=== PATIENT | female | born 1945 | race Caucasian/White ===

== ENCOUNTER 2024-08-06 11:00 | Inpatient (IN) | payer OTHER, SELFPAY ==
[2024-08-04 13:00] VITALS: BP 134/63
[2024-08-04 13:02] VITALS: BP 134/63
[2024-08-04 13:13] LABS: Glucose - Point of Care 126 mg/dl (70-99)
[2024-08-04 13:21] LABS: % Basophils 0.2 % (0-2); % Eosinophils 0.1 % (0-6); % Immature Granulocytes 0.6 % (0-0.5); % Lymphocytes 5.3 % (20.5-51.1); % Monocytes 7.5 % (1.7-9.3); % Neutrophils 86.3 % (42.2-75.2); Absolute Immature Granulocytes 0.1 10^3/uL (0-0.05); Absolute Lymphocytes 0.8 10^3/uL (1.2-3.4); Absolute Monocytes 1.1 10^3/uL (0.1-0.6); Absolute Neutrophils 12.5 10^3/uL (1.4-6.5); Hematocrit 38.4 % (37.0-47.0); Hemoglobin 13.2 g/dL (12.0-16.0); Mean Corp Hgb Conc. 34.4 g/dL (33.0-37.0); Mean Corpuscular Hgb 31.5 pg (27.0-31.0); Mean Corpuscular Volume 91.6 fL (81.0-99.0); Mean Platelet Volume 10.4 fL (7.4-10.4); Nucleated Red Blood Cells % 0 %; Platelet Count 258 10^3/uL (130-400); Red Blood Cell Count 4.19 10^6/uL (4.20-5.40); Red Cell Dist. Width 12.3 % (11.5-14.5); White Blood Cell Count 14.5 10^3/uL (4.8-10.8)
[2024-08-04 13:36] LABS: Blood Urea Nitrogen 18 mg/dl (7-17); Calcium 9.6 mg/dl (8.4-10.2); Carbon Dioxide 30 mmol/L (22-30); Chloride 99 mmol/L (98-107); Estimated Creatinine Clearance 47 ml/min; Glucose 121 mg/dl (70-99); Sodium 138 mmol/L (135-145); eGFR 57.31
[2024-08-04 14:00] VITALS: BP 128/82
--- NOTE | 2024-08-04 14:00 | ED.GENMED ---
History of Present Illness
<Victoria Cortez PA-C - Last Filed: 08/04/24 16:01>
General
Chief Complaint: Blood Sugar Problem
Source: patient and family
Time Seen by Provider: 08/04/24 13:41
History of Present Illness
History of Present Illness:
79yoF with a history of hypertension, hyperlipidemia, and insulin dependent type 2 diabetes presenting via EMS for evaluation after an episode of unresponsiveness. Son went to visit patient today and she was found to be unresponsive on the floor. He
immediately called EMS. Glucose was undetectably low on EMS arrival. IV access was unable to be obtained and an IO was placed in the R lower leg. She received D10 prehospital and she is now awake and alert. Patient has been sick for about 4-5 days
with URI symptoms and a cough. She was seen by her PCP yesterday and placed on amoxicillin. She has poor appetite due to her symptoms and has not eaten since yesterday. This is the 2nd time EMS has been called to her house this week for
hypoglycemia. She currently takes Basaglar 32 units BID, metformin, glipizide, and Farxiga. She did not take any of her medications today.
Phy Exam
<Victoria Cortez PA-C - Last Filed: 08/04/24 16:01>
General Physical Exam
General Presentation: well appearing and no apparent distress
General age: appears stated age
General Skin: warm and dry
General Habitus: normal
General Mental: alert
ENT Exam
ENT Exam: normocephalic
Cardiovascular Exam
Cardiovascular Exam: regular rate/rhythm
Pulmonary Exam
Pulmonary Exam: lungs clear, no respiratory distress, no rales, no crackles and no rhonchi
[place] Coma Scale
Eye Opening: Spontaneous
Verbal Response: Oriented
Motor Response: Obeys Commands
GCS Total Score: 15
Skin Exam
Skin Exam: normal color and warm/dry
Psychiatric Exam
Psychiatric Exam: normal mood/affect
Course
<Victoria Cortez PA-C - Last Filed: 08/04/24 16:01>
Orders/Labs/Results
Orders:
Orders
08/04/24 13:14
Basic Metabolic Panel Urgent
Complete Blood Count/With Diff Urgent
08/04/24 14:00
CR Chest - 2 Views Urgent
Comment:
Reason For Exam: Cough
08/04/24 14:19
Influenza A+B Rapid Molecular Urgent
[facility] Source: Nasal Swab
Specimen Description:
08/04/24 14:20
COVID-19 Antigen Urgent
Source: Nasal Swab
08/04/24 14:36
LFT [[id number]] Urgent
Potassium Urgent
08/04/24 Dinner
1800 calorie (15 carb) Diabetic
08/04/24 15:51
Add On- LAB Urgent
Tests Added?: HgA1C
08/04/24 15:52
Accucheck [Bedside Glucose Monitoring] As Directed
Frequency: Other frequency
Other frequency: NOW
08/04/24 15:54
Bedside Glucose- Treatment ONCE
Abnormal Lab Results
08/04/24 08/04/24 08/04/24
13:11 13:14 14:36
WBC 14.5 H 10^3/uL
(4.8-10.8)
RBC 4.19 L 10^6/uL
(4.20-5.40)
MCH 31.5 H pg
(27.0-31.0)
Abs Immat Gran (auto) 0.1 H 10^3/uL
(0-0.05)
Absolute Neuts (auto) 12.5 H 10^3/uL
(1.4-6.5)
Absolute Lymphs (auto) 0.8 L 10^3/uL
(1.2-3.4)
Absolute Monos (auto) 1.1 H 10^3/uL
(0.1-0.6)
Immature Gran % 0.6 H %
(0-0.5)
Neutrophils % 86.3 H %
(42.2-75.2)
Lymphocytes % 5.3 L %
(20.5-51.1)
BUN 18 H mg/dl
(7-17)
Glucose 121 H mg/dl
(70-99)
Total Bilirubin 1.7 H mg/dl
(0.2-1.3)
AST 201 H U/L
(14-36)
ALT 53 H U/L
(0-35)
POC Glucose 126 H mg/dl
(70-99)
08/04/24 13:14
08/04/24 14:36
Vital Signs
Initial and Last Documented VS:
Initial Vital Signs
Temp Pulse Resp Pulse Ox
98.4 F 77 20 93
08/04/24 12:59 08/04/24 12:59 08/04/24 12:59 08/04/24 12:59
Last Documented Vital Signs
Temp Pulse Resp BP Pulse Ox
98.4 F 81 23 125/67 95
08/04/24 13:02 08/04/24 15:45 08/04/24 15:45 08/04/24 15:12 08/04/24 15:45
<Bryn Philip, DO - Last Filed: 08/04/24 14:55>
Orders/Labs/Results
Orders:
Orders
08/04/24 13:14
Basic Metabolic Panel Urgent
Complete Blood Count/With Diff Urgent
08/04/24 14:00
CR Chest - 2 Views Urgent
Comment:
Reason For Exam: Cough
08/04/24 14:19
Influenza A+B Rapid Molecular Urgent
[facility] Source: Nasal Swab
Specimen Description:
08/04/24 14:20
COVID-19 Antigen Urgent
Source: Nasal Swab
08/04/24 14:36
LFT [[id number]] Urgent
Potassium Urgent
08/04/24 Dinner
1800 calorie (15 carb) Diabetic
08/04/24 15:51
Add On- LAB Urgent
Tests Added?: HgA1C
08/04/24 15:52
Accucheck [Bedside Glucose Monitoring] As Directed
Frequency: Other frequency
Other frequency: NOW
08/04/24 15:54
Bedside Glucose- Treatment ONCE
Abnormal Lab Results
08/04/24 08/04/24 08/04/24
13:11 13:14 14:36
WBC 14.5 H 10^3/uL
(4.8-10.8)
RBC 4.19 L 10^6/uL
(4.20-5.40)
MCH 31.5 H pg
(27.0-31.0)
Abs Immat Gran (auto) 0.1 H 10^3/uL
(0-0.05)
Absolute Neuts (auto) 12.5 H 10^3/uL
(1.4-6.5)
Absolute Lymphs (auto) 0.8 L 10^3/uL
(1.2-3.4)
Absolute Monos (auto) 1.1 H 10^3/uL
(0.1-0.6)
Immature Gran % 0.6 H %
(0-0.5)
Neutrophils % 86.3 H %
(42.2-75.2)
Lymphocytes % 5.3 L %
(20.5-51.1)
BUN 18 H mg/dl
(7-17)
Glucose 121 H mg/dl
(70-99)
Total Bilirubin 1.7 H mg/dl
(0.2-1.3)
AST 201 H U/L
(14-36)
ALT 53 H U/L
(0-35)
POC Glucose 126 H mg/dl
(70-99)
08/04/24 13:14
08/04/24 14:36
Vital Signs
Initial and Last Documented VS:
Initial Vital Signs
Temp Pulse Resp Pulse Ox
98.4 F 77 20 93
08/04/24 12:59 08/04/24 12:59 08/04/24 12:59 08/04/24 12:59
Last Documented Vital Signs
Temp Pulse Resp BP Pulse Ox
98.4 F 81 23 125/67 95
08/04/24 13:02 08/04/24 15:45 08/04/24 15:45 08/04/24 15:12 08/04/24 15:45
<Victoria Cortez PA-C - Last Filed: 08/04/24 16:01>
MDM/Problems Addressed
Differential Diagnosis Includes:
79yoF here after an episode of unresponsiveness. Son found her on the ground today. Glucose was undetectable on EMS arrival. She received D10 prehospital and she is awake and alert on arrival. She also c/o URI symptoms x 4-5 days with poor PO
intake. She did not take any of her diabetic medications today. Differential diagnosis includes but is not limited to: Medication side effect, hypoglycemia due to poor p.o. intake, dehydration, pneumonia, viral illness
Initial ED plan: Check CBC, CMP, COVID/flu swab, and chest x-ray. Will have patient eat to prevent further episodes of hypoglycemia.
<Victoria Cortez PA-C - Last Filed: 08/04/24 16:01>
*Critical Care Note
Total Time (30-74mins, 75-104mins- exclusive of procedures): Not Applicable
<Victoria Cortez PA-C - Last Filed: 08/04/24 16:01>
Update Note
Update Note:
Labs reveal a leukocytosis with a white count of 14.5 which is nonspecific. Glucose 121 on lab work. Mild transaminitis also noted. COVID/flu negative. Chest x-ray is pending. Will admit for observation given that this is patient's second
episode of hypoglycemia this week. IO was removed by Dr. Philip at bedside.
ED Attending Note
<Victoria Cortez PA-C - Last Filed: 08/04/24 16:01>
-
Portions of this chart may have been created with voice recognition software.� Occasional wrong word or��sound alike� substitutions may have occurred due to the inherent limitations of voice recognition software.
<Bryn Philip DO - Last Filed: 08/04/24 14:55>
ED Attending Note
Patient seen and examined by attending physician: Yes
ED Attending Note:
I have reviewed and agree with history and treatment plan by Victoria Cortez PA-C. My exam revealed 79-year-old female with right tibial IO. Patient tolerated removal well. Plan for likely admission due to patient's hypoglycemic episode in the
setting of not taking her medications today.
Discharge Plan
Departure
Patient Disposition: Admit
Date of Disposition: 08/04/24
Time of Disposition: 15:20
Presentation/result/management discussed w/ accepting MD/DO: Hospitalist
Discharge Problem:
Hypoglycemia
Prescriptions:
No Action
amoxicillin 500 mg Capsule
500 mg PO TID
Patient Comments:
08/04/24: filled 08/03/24 for 30 capsules over 10 days
atorvastatin 40 mg Tablet
40 mg PO DAILY
glipizide 10 mg Tablet Extended Release 24hr
10 mg PO DAILY
cyanocobalamin (vitamin B-12) 1,000 mcg Tablet
1,000 mcg PO DAILY
levothyroxine 100 mcg Tablet
100 mcg PO DAILY
lisinopril 10 mg Tablet
10 mg PO DAILY
aspirin 81 mg Tablet,Chewable
81 mg PO HS
hydrochlorothiazide 25 mg Tablet
25 mg PO DAILY
escitalopram oxalate 20 mg Tablet
20 mg PO DAILY
metformin 750 mg Tablet Extended Release 24 Hr
750 mg PO BID
cholecalciferol (vitamin D3) [Vitamin D3] 25 mcg (1,000 unit) Tablet
25 mcg PO DAILY
insulin glargine [Basaglar KwikPen U-100 Insulin] 100 unit/mL (3 mL) Insulin Pen
32 unit SC BID
omega 4-bup-nbo-fish oil [Fish Oil] 1,000 (120-180) mg Capsule
1 cap PO BID
Referrals:
Tomeka Preston DO [Family Provider] -
Interventions
Interventions:
*Risk Screen - Suicide Last Done: 08/04/24 13:03
*General Assessment Last Done: 08/04/24 13:03
*Neglect/Abuse Screening Last Done: 08/04/24 13:03
*ED COVID-19 Vaccine History Last Done: 08/04/24 13:03
ED- Neurological Assessment Last Done: 08/04/24 13:08
Discharge Date and Time
Print Language: SAO TOMEAN
[2024-08-04 14:50] LABS: COVID-19 Antigen Negative (Negative)
[2024-08-04 15:12] VITALS: BP 125/67
[2024-08-04 15:13] LABS: ALT (SGPT) 53 U/L (0-35); AST (SGOT) 201 U/L (14-36); Alkaline Phosphatase 47 U/L (38-126); Direct Bilirubin 0.3 mg/dl (0.0-0.4); Potassium 4.5 mmol/L (3.5-5.1); Total Bilirubin 1.7 mg/dl (0.2-1.3); Total Protein 6.7 g/dl (6.3-8.2)
[2024-08-04 16:03] LABS: Glucose - Point of Care 141 mg/dl (70-99)
--- NOTE | 2024-08-04 16:11 | HPS.HSE ---
Addendum entered and electronically signed by Richmond Byrd MD 08/05/24 15:07:
Correction, total time spent to see the patient on the floor, examine the patient, review data and lab results, discuss treatment plan with patient, nursing staff around 55 minutes.
Addendum entered and electronically signed by Richmond Byrd MD 08/04/24 16:26:
Correction, patient is not on Farxiga.
Original Note:
Family Physician
-
Family Physician: Tomeka Preston
Chief Complaint
-
Unresponsiveness
History of Present Illness
79-year-old female with a past medical history of type 2 diabetes, hypertension, hyperlipidemia, and obesity was found unresponsive by her son. Patient has been having cold symptoms for the past 2 weeks, and eating 20% of her normal. She has been
taking the same amount of her diabetes regimen, that includes glargine 32 units twice daily, metformin 750 mg twice daily, glipizide 10 mg daily, and Farxiga. She was found unresponsive by her son today, who called EMS. Her glucose was
undetectably low, and she received D10 via [facility] prehospital. She was placed on amoxicillin by her PCP yesterday. Currently, she reports cough, productive of green sputum. Associated symptoms include rhinorrhea, nasal congestion, poor appetite, poor
oral intake. No fever, no chest pain, no shortness of breath. No nausea, no vomiting.
Medical History
Past Medical History
Past Medical History: Reports HTN, Hypercholesterolemia, Hypothyroidism, IDDM and Other (Anxiety/depression)
Past Surgical History: Reports Other (Bilateral carpal tunnel release, left knee replacement, right toe surgery)
Social History
Tobacco: Former Smoker
Alcohol: None
Drug: None
Family History
Family History: Not pertinent
Allergies / Home Medications
Allergies reflects when Allergies were last updated in [employer].
Home Medications with original date entered in [employer]
Allergy/Medication List:
Allergies
Allergy/AdvReac Type Severity Reaction Status Date / Time
No Known Allergies Allergy Verified 08/04/24 13:02
Home Medications Table - record
�Medication �Instructions �Recorded �Confirmed
amoxicillin 500 mg capsule 500 mg PO TID 08/04/24 08/04/24
aspirin 81 mg chewable tablet 81 mg PO HS 08/04/24 08/04/24
atorvastatin 40 mg tablet 40 mg PO DAILY 08/04/24 08/04/24
cholecalciferol (vitamin D3) 25 25 mcg PO DAILY 08/04/24 08/04/24
mcg (1,000 unit) tablet (Vitamin
D3)
cyanocobalamin (vitamin B-12) 1,000 mcg PO DAILY 08/04/24 08/04/24
1,000 mcg tablet
escitalopram oxalate 20 mg tablet 20 mg PO DAILY 08/04/24 08/04/24
glipizide 10 mg tablet, extended 10 mg PO DAILY 08/04/24 08/04/24
release 24 hr
hydrochlorothiazide 25 mg tablet 25 mg PO DAILY 08/04/24 08/04/24
insulin glargine 100 unit/mL (3 32 unit SC BID 08/04/24 08/04/24
mL) subcutaneous pen (Basaglar
KwikPen U-100 Insulin)
levothyroxine 100 mcg tablet 100 mcg PO DAILY 08/04/24 08/04/24
lisinopril 10 mg tablet 10 mg PO DAILY 08/04/24 08/04/24
metformin 750 mg tablet,extended 750 mg PO BID 08/04/24 08/04/24
release 24 hr
omega 1-tik-twn-fish oil 1,000 mg 1 cap PO BID 08/04/24 08/04/24
(120 mg-180 mg) capsule (Fish Oil)
Review of Systems
-
A 12 point ROS was completed and negative except as noted: Yes
Physical Exam
Vital Signs
Vital Signs
Temp Pulse Resp BP Pulse Ox
98.4 F 81 23 125/67 95
08/04/24 13:02 08/04/24 15:45 08/04/24 15:45 08/04/24 15:12 08/04/24 15:45
Physical Exam
General: No Apparent Distress
HEENT: NormoCephalic, Anicteric and Moist mucous membranes
Respiratory: Clear
Cardiac: S1/S2 and Regular Rhythm
GI: Soft, Non Tender, Non Distended and Normal Bowel Sounds
Musculoskeletal: No Clubbing, No Cyanosis and No Edema
Skin: Warm and Dry
Neuro: Awake, Alert and Oriented
Psych: Calm
Laboratory Results
-
08/04/24 13:14
08/04/24 14:36
Laboratory Results
Total Bilirubin 1.7 mg/dl (0.2-1.3) H 08/04/24 14:36
AST 201 U/L (14-36) H 08/04/24 14:36
ALT 53 U/L (0-35) H 08/04/24 14:36
Alkaline Phosphatase 47 U/L (38-126) 08/04/24 14:36
Impression/Plan
-
HPI: 79-year-old female with a past medical history of type 2 diabetes, hypertension, hyperlipidemia, and obesity was found unresponsive by her son. Patient has been having cold symptoms for the past 2 weeks, and eating 20% of her normal. She has
been taking the same amount of her diabetes regimen, that includes glargine 32 units twice daily, metformin 750 mg twice daily, glipizide 10 mg daily, and Farxiga. She was found unresponsive by her son today, who called EMS. Her glucose was
undetectably low, and she received D10 via [facility] prehospital. She was placed on amoxicillin by her PCP yesterday. Currently, she reports cough, productive of green sputum. Associated symptoms include rhinorrhea, nasal congestion, poor appetite, poor
oral intake. No fever, no chest pain, no shortness of breath. No nausea, no vomiting.
#Unresponsiveness
#Severe hypoglycemia
Patient became responsive with receiving IO glucose
Check EKG, give gentle IV fluids, carefully monitor blood sugars
#Type 2 diabetes with severe hypoglycemia
Patient is on glargine 32 units twice daily, metformin 750 mg twice daily, glipizide 10 mg daily, and Farxiga
Will give glargine 20 units at bedtime, metformin, farxiga
Diabetic diet, sliding scale insulin
Hold glipizide
#Probable acute upper respiratory tract infection
Flu/COVID/chest x-ray all negative
Complete amoxicillin course, continue supportive care
#Mild transaminitis
Likely from infection, monitor
#Benign essential hypertension
Hold lisinopril for now, monitor
#Hypothyroidism
Continue levothyroxine
#Anxiety/depression
Continue SSRI
#T12/L1 compression fractures, likely chronic
DVT prophylaxis�subcu Lovenox
Full code
Total time spent to see the patient on the floor, examine the patient, review data and lab results, discuss treatment plan with patient, nursing staff around 35 minutes.
[2024-08-04 17:32] LABS: Glucose - Point of Care 75 mg/dl (70-99)
--- NOTE | 2024-08-04 17:36 | CM ---
Addendum entered by Mary Lowery 08/04/24 17:42:
Patient and son were asking about information about adding more grab bars into patient's home. Patient was transferred upstairs before CM was able to give her the information.
Original Note:
CM reviewed chart. Introduced self and role. Son was also at bedside. Patient signed the [employer] form for Medicare and commercial insurance. She lives alone in a multi-level home. There are 2 steps to enter into her home. She is usually independent and
drives. She owns a walker and cane. She is retired from [employer] She denied any +SDOHs. She has an active pharmacy and PCP.
ANTICIPATED DISCHARGE PLAN: Home with possible HHC ([facility]?); due to low blood sugar and living alone, when medically cleared.
[2024-08-04 18:07] VITALS: BMI 31.0
[2024-08-04 18:08] VITALS: BP 192/95
[2024-08-04] MEDS: NOVOLOG FLEXPEN-MODERATE RESISTANCE SC (18:29)
--- NOTE | 2024-08-04 18:40 | PTCARENOTE ---
Received pt from ER via stretcher, accompanied by ER staff. Pt AAO x3; pleasant and cooperative. ORTEGA well, ambulatory to bed with assist x1; unsteady w/OOB activity; fall prec initiated. Pt denies weakness/dizziness. VSS. On room air- pulse ox
94%, pt denies SOB; has occ dry [employer] cough. Abd obese, soft, to start 1800 jayson diet. pt DTV; will void in BR; will call for assistance. Temp 100.6 PO; pt with abrasions to knees. Oriented to 4East, currently resting comfortably. Will continue to
monitor.
[2024-08-04] MEDS: NSS 1000 IV (19:11)
[2024-08-04] MEDS: LOVENOX 40 MG SC (19:12)
[2024-08-04 20:58] LABS: Glucose - Point of Care 129 mg/dl (70-99)
[2024-08-04] MEDS: GLUCOPHAGE XR EXTENDED RELEASE 750 MG PO (21:00)
[2024-08-04] MEDS: LOW STRENGTH ASPIRIN 81 MG PO (21:01)
[2024-08-04] MEDS: LANTUS 0.2 UNITS SC (21:01)
[2024-08-04] MEDS: MUCINEX 600 MG PO (21:01)
[2024-08-04] MEDS: AMOXIL 500 MG PO (21:01)
[2024-08-04 23:33] LABS: Glucose - Point of Care 102 mg/dl (70-99)
[2024-08-04 23:49] VITALS: BP 136/62
[2024-08-05 01:12] LABS: Glucose - Point of Care 114 mg/dl (70-99)
[2024-08-05 03:21] LABS: Glucose - Point of Care 90 mg/dl (70-99)
[2024-08-05] MEDS: SYNTHROID 100 MCG PO (05:30)
[2024-08-05 07:46] LABS: Hematocrit 35.8 % (37.0-47.0); Hemoglobin 12.3 g/dL (12.0-16.0); Mean Corp Hgb Conc. 34.4 g/dL (33.0-37.0); Mean Corpuscular Hgb 32.6 pg (27.0-31.0); Mean Platelet Volume 11.1 fL (7.4-10.4); Platelet Count 213 10^3/uL (130-400); Red Blood Cell Count 3.77 10^6/uL (4.20-5.40); Red Cell Dist. Width 12.3 % (11.5-14.5); White Blood Cell Count 9.6 10^3/uL (4.8-10.8)
[2024-08-05 07:55] VITALS: BP 141/90
[2024-08-05 07:59] LABS: Glucose - Point of Care 90 mg/dl (70-99)
[2024-08-05 08:00] LABS: ALT (SGPT) 44 U/L (0-35); AST (SGOT) 114 U/L (14-36); Albumin 3.3 g/dl (3.5-5.0); Alkaline Phosphatase 52 U/L (38-126); Blood Urea Nitrogen 17 mg/dl (7-17); Calcium 8.9 mg/dl (8.4-10.2); Carbon Dioxide 31 mmol/L (22-30); Chloride 101 mmol/L (98-107); Direct Bilirubin 0.1 mg/dl (0.0-0.4); Estimated Creatinine Clearance 41 ml/min; Glucose 96 mg/dl (70-99); Magnesium 1.6 mg/dl (1.6-2.3); Potassium 4.2 mmol/L (3.5-5.1); Sodium 138 mmol/L (135-145); Total Bilirubin 0.9 mg/dl (0.2-1.3); Total Protein 5.8 g/dl (6.3-8.2); eGFR 51.11
--- NOTE | 2024-08-05 08:10 | W.PN.HOSP.TC ---
Today's Communication/Plan
-
Consult diabetes nurse practitioner
Discharge tomorrow after diabetes education
Assessment / Plan
Assessment / Plan
HPI: 79-year-old female with a past medical history of type 2 diabetes, hypertension, hyperlipidemia, and obesity was found unresponsive by her son. Patient has been having cold symptoms for the past 2 weeks, and eating 20% of her normal. She has
been taking the same amount of her diabetes regimen, that includes glargine 32 units twice daily, metformin 750 mg twice daily, glipizide 10 mg daily. She was found unresponsive by her son today, who called EMS. Her glucose was undetectably low,
and she received D10 via [facility] prehospital. She was placed on amoxicillin by her PCP yesterday. Currently, she reports cough, productive of green sputum. Associated symptoms include rhinorrhea, nasal congestion, poor appetite, poor oral intake. No
fever, no chest pain, no shortness of breath. No nausea, no vomiting.
#Unresponsiveness
#Severe hypoglycemia
Patient became responsive with receiving IO glucose
Resolved
#Type 2 diabetes with severe hypoglycemia
Patient is on glargine 32 units twice daily, metformin 750 mg twice daily, glipizide 10 mg daily
Counseled patient that if she is eating less, she needs to take less insulin
Will give glargine 15 units at bedtime, continue metformin
Diabetic diet, sliding scale insulin, c/s diabetes nurse for dietary education
Hold glipizide
#Probable acute upper respiratory tract infection
Flu/COVID/chest x-ray all negative
Complete amoxicillin course as prescribed by PCP, continue supportive care
#Mild transaminitis
Likely from infection, improving
#Benign essential hypertension
Resume lisinopril, hold HCTZ
#Hypothyroidism
Continue levothyroxine
#Anxiety/depression
Continue SSRI
#T12/L1 compression fractures, likely chronic
DVT prophylaxis�subcu Lovenox
Full code
Total time spent to see the patient on the floor, examine the patient, review data and lab results, discuss treatment plan with patient, nursing staff around 45 minutes.
Physical Exam
General: No acute distress
HEENT: Normocephalic, Atraumatic, EOMI, MMM
Respiratory: Clear to Auscultation bilaterally
Cardiac: Normal S1/S2, Regular Rate and Rhythm
GI: Soft, Nontender, Nondistended, Normal Bowel Sounds
Extremities: No Clubbing, Cyanosis
Neuro: Nonfocal/Grossly Intact
Psych: Calm, Cooperative
Derm:
Abrasions noted on bilateral upper shins
Anticipated Discharge: Within 24 hours
Subjective/Interval History
-
Date of Service: August 05, 2024
Patient reports feeling much better. She is alert, awake, and feels energetic. No chest pain, no shortness of breath. She continues to have a cough. No fever, no vomiting.
Objective Data
-
Labs:
Laboratory Results
08/05/24
06:48
WBC 9.6
Hgb 12.3
Hct 35.8 L
Plt Count 213
Sodium 138
Potassium 4.2
Chloride 101
Carbon Dioxide 31 H
BUN 17
Creatinine 1.1 H
Glucose 96
Calcium 8.9
Total Bilirubin 0.9
AST 114 H
ALT 44 H
Alkaline Phosphatase 52
Vital Signs:
Vital Signs
Temp Pulse Resp BP Pulse Ox
99.6 F 80 18 136/62 93
08/04/24 23:49 08/04/24 23:49 08/04/24 23:49 08/04/24 23:49 08/04/24 23:49
I&O
08/04/24 08/05/24 08/06/24
06:59 06:59 06:59
Intake Total 1240 / 1240
Balance 1240 / 1240
[2024-08-05] MEDS: NOVOLOG FLEXPEN-MODERATE RESISTANCE SC (09:14)
[2024-08-05] MEDS: LEXAPRO 20 MG PO (09:14)
[2024-08-05] MEDS: GLUCOPHAGE XR EXTENDED RELEASE 750 MG PO ×2 (09:14→17:35)
[2024-08-05] MEDS: LIPITOR 40 MG PO (09:14)
[2024-08-05] MEDS: AMOXIL 500 MG PO ×3 (09:14→21:24)
[2024-08-05] MEDS: FLUSH (NSS) 1 FLUSH IV (09:15)
[2024-08-05] MEDS: MUCINEX 600 MG PO ×2 (09:15→20:39)
[2024-08-05] MEDS: MIRALAX 17 GRAMS PO ×2 (10:58→20:39)
[2024-08-05] MEDS: SENOKOT-S 2 TABLET PO ×2 (10:58→20:41)
[2024-08-05 11:16] LABS: Glycohemoglobin (HgbA1c) 5.8 % (4.0-5.6)
--- NOTE | 2024-08-05 12:23 | CM ---
Addendum entered by Gloria Maldonado 08/05/24 12:32:
PCP: Tomeka Alonso
Pharmacy: [facility]
Original Note:
Met patient at bedside. Observation form explained & signed.
Discussed grab bars - she states she has 2 grab bars in shower and also has a shower chair.
Has a glucometer at home
PT to screen patient
PLAN: home, ? home health
[2024-08-05 13:27] LABS: Glucose - Point of Care 176 mg/dl (70-99)
[2024-08-05] MEDS: NOVOLOG FLEXPEN-MODERATE RESISTANCE 1 UNITS SC ×2 (14:27→17:35)
[2024-08-05 15:50] VITALS: BP 130/63
[2024-08-05] MEDS: ZESTRIL 10 MG PO (16:53)
[2024-08-05] MEDS: TESSALON PERLES 100 MG PO (16:54)
[2024-08-05 17:05] LABS: Glucose - Point of Care 192 mg/dl (70-99)
[2024-08-05] MEDS: LOVENOX 40 MG SC (17:34)
[2024-08-05 21:20] LABS: Glucose - Point of Care 141 mg/dl (70-99)
[2024-08-05] MEDS: LOW STRENGTH ASPIRIN 81 MG PO (21:24)
[2024-08-05] MEDS: LANTUS 0.18 UNITS SC (21:24)
[2024-08-05 23:46] VITALS: BP 141/70
[2024-08-06 03:29] LABS: Glucose - Point of Care 136 mg/dl (70-99)
[2024-08-06] MEDS: SYNTHROID 100 MCG PO (05:01)
[2024-08-06 08:28] LABS: Glucose - Point of Care 120 mg/dl (70-99)
[2024-08-06 08:39] VITALS: BP 148/76
[2024-08-06] MEDS: NOVOLOG FLEXPEN-MODERATE RESISTANCE SC ×2 (08:47→12:40)
[2024-08-06] MEDS: LEXAPRO 20 MG PO (08:49)
[2024-08-06] MEDS: GLUCOPHAGE XR EXTENDED RELEASE 750 MG PO (08:49)
[2024-08-06] MEDS: LIPITOR 40 MG PO (08:49)
[2024-08-06] MEDS: AMOXIL 500 MG PO ×2 (08:49→16:00)
[2024-08-06] MEDS: MUCINEX 600 MG PO (08:50)
[2024-08-06] MEDS: MIRALAX 17 GRAMS PO (08:50)
[2024-08-06] MEDS: ZESTRIL 10 MG PO (08:50)
[2024-08-06] MEDS: SENOKOT-S 2 TABLET PO (08:50)
[2024-08-06 09:11] LABS: ALT (SGPT) 45 U/L (0-35); AST (SGOT) 70 U/L (14-36); Albumin 3.5 g/dl (3.5-5.0); Alkaline Phosphatase 62 U/L (38-126); Blood Urea Nitrogen 19 mg/dl (7-17); Carbon Dioxide 29 mmol/L (22-30); Chloride 99 mmol/L (98-107); Estimated Creatinine Clearance 41 ml/min; Glucose 126 mg/dl (70-99); Potassium 4.8 mmol/L (3.5-5.1); Sodium 139 mmol/L (135-145); Total Bilirubin 1.1 mg/dl (0.2-1.3); Total Protein 6.3 g/dl (6.3-8.2); eGFR 51.11
--- NOTE | 2024-08-06 10:08 | W.PN.HOSP.TC ---
Today's Communication/Plan
-
Discontinue glipizide, reduce glargine to 18 units.
Discharge planning
Assessment / Plan
Assessment / Plan
Impression: 79-year-old female with a past medical history of type 2 diabetes, hypertension, hyperlipidemia, and obesity was found unresponsive by her son. Patient has been having cold symptoms for the past 2 weeks, and eating 20% of her normal.
She has been taking the same amount of her diabetes regimen, that includes glargine 32 units twice daily, metformin 750 mg twice daily, glipizide 10 mg daily. She was found unresponsive by her son today, who called EMS. Her glucose was
undetectably low, and she received D10 via [facility] prehospital. She was placed on amoxicillin by her PCP yesterday. Currently, she reports cough, productive of green sputum. Associated symptoms include rhinorrhea, nasal congestion, poor appetite, poor
oral intake. No fever, no chest pain, no shortness of breath. No nausea, no vomiting.
Assessment/plan:
#Unresponsiveness
-Resolved.
-Due to severe hypoglycemia and poor p.o. intake.
#Type 2 diabetes with severe hypoglycemia
-Patient is on glargine 32 units twice daily, metformin 750 mg twice daily, glipizide 10 mg daily.
-Glipizide discontinued, insulin glargine reduced to 18 units per DM recs.
-Continue current dose of metformin.
-Diabetic team appreciated.
-Discharge planning
#Probable acute upper respiratory tract infection.
-Resolved.
-Flu/COVID/chest x-ray all negative
-Antibiotics with amoxicillin completed 08/06.
#Mild transaminitis
-Improved
-Most likely due to infection.
#Benign essential hypertension
-Continue lisinopril, Hold HCTZ.
#Hypothyroidism
-Continue levothyroxine
#Anxiety/depression
-Continue escitalopram
#T12/L1 compression fractures, likely chronic
DVT prophylaxis�subcu Lovenox
CODE STATUS-full code
Anticipated Discharge: Today
Subjective/Interval History
-
Date of Service: August 06, 2024
Objective Data
-
Labs:
Laboratory Results
08/06/24
08:18
Sodium 139
Potassium 4.8
Chloride 99
Carbon Dioxide 29
BUN 19 H
Creatinine 1.1 H
Glucose 126 H
Calcium 9.0
Total Bilirubin 1.1
AST 70 H
ALT 45 H
Alkaline Phosphatase 62
Vital Signs:
Vital Signs
Temp Pulse Resp BP Pulse Ox
98.1 F 85 18 148/76 93
08/06/24 08:39 08/06/24 08:39 08/06/24 08:39 08/06/24 08:39 08/06/24 08:39
I&O
08/05/24 08/06/24 08/07/24
06:59 06:59 06:59
Intake Total 1240 / 1240 1800 / 1800
Balance 1240 / 1240 1800 / 1800
Review of Systems
-
History Source: Patient
All other systems: Not reviewed unless documented
Constitutional: Reports No Symptoms
Respiratory: Reports No Symptoms
Cardiac: Reports No Symptoms
Genitourinary: Reports No Symptoms
Musculoskeletal: Reports No Symptoms
Skin: Reports No Symptoms
Physical Exam
-
General: Well Developed and No Apparent Distress
HEENT: Normocephalic, Atraumatic and Moist Mucous Membranes
Respiratory: Clear to Auscultation
Cardiac: Regular Rhythm and S1/S2; Negative Murmur, Rub or Gallop
GI: Soft, Nontender, Nondistended and Normal Bowel Sounds; Negative Organomegaly
Rectal: Deferred by Provider
Musculoskeletal: No Clubbing, No Cyanosis and No Edema
Skin: Warm; Negative Rash
Neuro: Awake, Alert, Oriented, AO x 3 and Nonfocal/Grossly Intact
Psych: Calm and Intact Judgement/Insight
Data Reviewed
-
Diagnostic Radiology: Report Reviewed by me and Discussed with Physician
Labs: Labs Reviewed by me and Discussed with Physician
Old Records: Reviewed
[2024-08-06 10:30] VITALS: BP 149/75; PULSE 90; O2SAT 97
[2024-08-06 10:40] VITALS: BP 149/75; PULSE 91; O2SAT 96
[2024-08-06 12:33] LABS: Glucose - Point of Care 148 mg/dl (70-99)
--- NOTE | 2024-08-06 13:56 | PN.DE ---
Diabetes Education
- -
08/06/2024: Diabetes Education Consult
Met with Tammy for glucose monitor instructions. Current A1C 5.8%.
Pt reports that she had been unwell and not eating but taking her insulin doses as prescribed the days leading up to the event.
She has a meter but is not monitoring regularly. Provided her with a new OneTouch glucometer, instructions with good return demonstration, result 140 mg/dl before lunch. Discussed testing pattern and expected results and information marked in the
take home booklet.
Discussed action of long acting insulin- Lantus as well as symptoms and treatment of hypoglycemia which was highlighted for her in the take home booklet.
Discussed and reviewed importance of eating enough protein and encouraged her to always treat sx as soon as they occur.
Will need RX for test strips and lancets for the OneTouch, testing 2x/day at discharge.
In patient dietary consult was placed and updates given to Pt's nurse.
[2024-08-06 16:08] VITALS: BP 162/94
--- NOTE | 2024-08-06 16:14 | CM ---
PT recommending home care services at discharge. Discussed with Lois Paris ([facility]) who will contact Tammy to discuss.
Plan: Discharge to home with [facility] pending patient acceptance.
--- NOTE | 2024-08-06 16:24 | VNURNOTE ---
Home Health Liaison spoke with patient and grandson to discuss [facility] nurse/therapy, visits, schedule and homebound status. Patient is agreeable and understands that visits at home will be 2-3 x per week to assess and teach medical management.
Patient is aware that [facility] will contact them for start of care in 1-2 days after discharge from . [facility] referral completed in [facility].
--- NOTE | 2024-08-06 16:56 | PTCARENOTE ---
IV's discontinued. Discharge paperwork printed and reviewed with patient and her son. Pt transported off the floor via wheelchair by volunteer with all belongings from the room.
--- NOTE | 2024-08-06 17:55 | W.DCSUMMARY ---
Documented by User: Ramiro Grace MD, Resident 08/06/24 18:06
Discharge Summary
Discharge Data
Date of Admission: 08/06/24
Date of Discharge: 08/06/24
-
Pending Results: No
Hospital Course
Discharging Physician : Oumar Scott DO; Ramiro Grace MD
Disposition : Home with VN and PT
Primary care physician : Tomeka Preston
Principal Discharge diagnosis : Severe hypoglycemia, type 2 diabetes mellitus, mild transaminitis, essential hypertension, hypothyroidism, anxiety/depression, URI.
Hospital Course : 79-year-old female with PMH of T2DM, essential hypertension, hyperlipidemia, who was brought to ED on 08/04/2024 after being found unresponsive at home by her son. She reported a 2 weeks history of cold symptoms with poor oral
intake while taking all her diabetic medications. At the time of presentation, her serum glucose level was undetectably low and she was treated with D10 via IO. She was evaluated with a chest x-ray which showed no acute cardiopulmonary process and
was treated empirically with amoxicillin which she was taking [address].
While in the hospital, patient was seen in conjunction with diabetic education team, she was stabilized and or her diabetic medications were held. Her glipizide has been discontinued, and her insulin glargine reduced to 18 units daily. Patient has
been assessed and deemed stable for discharge today. She will be seen at home by visiting nurses and physical therapy.
Discharge Plan
-
Patient Disposition: Home (Routine Discharge)
Discharge Diagnosis/Procedures: Hypoglycemia
Condition: Good
Diet: Diabetic, Carb Controlled
Activity: As tolerated
Driving Restrictions: As prior to admission
Bathing Restrictions: None
Blood Work: Monitor home blood sugar readings twice daily, record values and take to your family doctor appointment
Others Tests: None
Activity Restrictions/Additional Instructions:
Schedule follow-up appointment with your family doctor within 7 to 10 days of discharge from the hospital
Instructions: Low blood sugar in people with diabetes
Referrals:
Tomeka Preston DO [Family Provider] - in less than 1 week
Additional Discharge Medication Instructions: Decrease insulin glargine (Lantus) to 18 units nightly
Continue amoxicillin course as previously prescribed, to complete 10-day course
Stop taking glipizide
Prescriptions:
New
(DME) OneTouch Verio test strips Strip
Qty: 60 0RF
Rx Instructions:
Pt testing 2 times a day
(DME) lancets [OneTouch Delica Plus Lancet] 30 gauge Misc
Qty: 60 0RF
Rx Instructions:
Pt testing 2 times a day
insulin glargine 100 unit/mL (3 mL) insulin pen
18 unit SC HS 30 Days Qty: 15 0RF
(DME) lancets [OneTouch Delica Plus Lancet] 30 gauge misc
See Rx Instructions .Route Qty: 100 0RF
Rx Instructions:
As directed
(DME) OneTouch Ultra Test Strip
See Rx Instructions .Route Qty: 100 0RF
Rx Instructions:
As directed
Continued
amoxicillin 500 mg Capsule
500 mg PO TID
Patient Comments:
08/04/24: filled 08/03/24 for 30 capsules over 10 days
atorvastatin 40 mg Tablet
40 mg PO DAILY
levothyroxine 100 mcg Tablet
100 mcg PO DAILY
lisinopril 10 mg Tablet
10 mg PO DAILY
aspirin 81 mg Tablet,Chewable
81 mg PO HS
hydrochlorothiazide 25 mg Tablet
25 mg PO DAILY
escitalopram oxalate 20 mg Tablet
20 mg PO DAILY
metformin 750 mg Tablet Extended Release 24 Hr
750 mg PO BID
cholecalciferol (vitamin D3) [Vitamin D3] 25 mcg (1,000 unit) Tablet
25 mcg PO DAILY
omega 3-erm-swl-fish oil [Fish Oil] 1,000 (120-180) mg Capsule
1 cap PO BID
Discontinued
glipizide 10 mg Tablet Extended Release 24hr
10 mg PO DAILY
cyanocobalamin (vitamin B-12) 1,000 mcg Tablet
1,000 mcg PO DAILY
insulin glargine [Basaglar KwikPen U-100 Insulin] 100 unit/mL (3 mL) Insulin Pen
32 unit SC BID
Discharge Orders:
Discharge Patient (As Directed); Ordered 08/06/24
Ordered By: Oumar Scott
Discharge Date and Time
Discharge Date/Time: 08/06/24 16:52
Print Language: AUSTR[place]

Documented by User: Oumar Scott DO 08/06/24 18:10
Discharge Summary
Discharge Data
Date of Admission: 08/06/24
Date of Discharge: 08/06/24
Discharge Plan
-
Patient Disposition: Home (Routine Discharge)
Discharge Diagnosis/Procedures: Hypoglycemia
Condition: Good
Diet: Diabetic, Carb Controlled
Activity: As tolerated
Driving Restrictions: As prior to admission
Bathing Restrictions: None
Blood Work: Monitor home blood sugar readings twice daily, record values and take to your family doctor appointment
Others Tests: None
Activity Restrictions/Additional Instructions:
Schedule follow-up appointment with your family doctor within 7 to 10 days of discharge from the hospital
Instructions: Low blood sugar in people with diabetes
Referrals:
Tomeka Preston DO [Family Provider] - in less than 1 week
Additional Discharge Medication Instructions: Decrease insulin glargine (Lantus) to 18 units nightly
Continue amoxicillin course as previously prescribed, to complete 10-day course
Stop taking glipizide
Prescriptions:
New
(DME) OneTouch Verio test strips Strip
Qty: 60 0RF
Rx Instructions:
Pt testing 2 times a day
(DME) lancets [OneTouch Delica Plus Lancet] 30 gauge Misc
Qty: 60 0RF
Rx Instructions:
Pt testing 2 times a day
insulin glargine 100 unit/mL (3 mL) insulin pen
18 unit SC HS 30 Days Qty: 15 0RF
(DME) lancets [OneTouch Delica Plus Lancet] 30 gauge misc
See Rx Instructions .Route Qty: 100 0RF
Rx Instructions:
As directed
(DME) OneTouch Ultra Test Strip
See Rx Instructions .Route Qty: 100 0RF
Rx Instructions:
As directed
Continued
amoxicillin 500 mg Capsule
500 mg PO TID
Patient Comments:
08/04/24: filled 08/03/24 for 30 capsules over 10 days
atorvastatin 40 mg Tablet
40 mg PO DAILY
levothyroxine 100 mcg Tablet
100 mcg PO DAILY
lisinopril 10 mg Tablet
10 mg PO DAILY
aspirin 81 mg Tablet,Chewable
81 mg PO HS
hydrochlorothiazide 25 mg Tablet
25 mg PO DAILY
escitalopram oxalate 20 mg Tablet
20 mg PO DAILY
metformin 750 mg Tablet Extended Release 24 Hr
750 mg PO BID
cholecalciferol (vitamin D3) [Vitamin D3] 25 mcg (1,000 unit) Tablet
25 mcg PO DAILY
omega 6-jov-gbr-fish oil [Fish Oil] 1,000 (120-180) mg Capsule
1 cap PO BID
Discontinued
glipizide 10 mg Tablet Extended Release 24hr
10 mg PO DAILY
cyanocobalamin (vitamin B-12) 1,000 mcg Tablet
1,000 mcg PO DAILY
insulin glargine [Basaglar KwikPen U-100 Insulin] 100 unit/mL (3 mL) Insulin Pen
32 unit SC BID
Discharge Orders:
Discharge Patient (As Directed); Ordered 08/06/24
Ordered By: Oumar Scott
Discharge Date and Time
Discharge Date/Time: 08/06/24 16:52
Print Language: AUSTR[place]
== END 2024-08-06 16:52 | disposition home health service (06) | DRG 638 ==
LOC: 4 EAST ACU 11:00
PROVIDERS: Physician Assistant; Student in an Organized Health Care Education/Training Program; ADMITTING PHYSICIAN Family Medicine; ATTENDING PHYSICIAN Internal Medicine; EMERGENCY PHYSICIAN Emergency Medicine; FAMILY PHYSICIAN Internal Medicine
DX: E11.649 Type 2 diabetes mellitus with hypoglycemia without coma (principal); M48.55XA Collapsed vertebra, not elsewhere classified, thoracolumbar region, initial encounter for fracture; E03.9 Hypothyroidism, unspecified; F32.A Depression, unspecified; I10 Essential (primary) hypertension; E66.9 Obesity, unspecified; E78.00 Pure hypercholesterolemia, unspecified; F41.9 Anxiety disorder, unspecified; R63.0 Anorexia; R74.01 Elevation of levels of liver transaminase levels; Z96.652 Presence of left artificial knee joint; Z79.84 Long term (current) use of oral hypoglycemic drugs; Z79.890 Hormone replacement therapy; Z79.899 Other long term (current) drug therapy; Z87.891 Personal history of nicotine dependence
CPT/HCPCS: 71046; 80048; 80053; 80076; 82248; 82962; 83036; 83735; 84132; 85025; 85027; 87502; 87811; 93005; 97116; 97162; 97166; 99285